=== PATIENT | female | born 1995 ===

== ENCOUNTER 2022-01-01 08:00 | Outpatient (CLI) | payer OTHER | END 2022-01-01 08:30 | disposition home or self-care (01) | LOC: PPH VACUNA 08:00 | PROVIDERS: ATTEND Emergency Medicine Pediatric Emergency Medicine | DX: Z23 Encounter for immunization (principal) ==

== ENCOUNTER 2022-07-31 10:03 | Outpatient (CLI) | payer OTHER | END 2022-07-31 10:13 | disposition home or self-care (01) | LOC: PPH VACUNA 10:03 | PROVIDERS: ATTEND Emergency Medicine Pediatric Emergency Medicine | DX: Z23 Encounter for immunization (principal) ==